=== PATIENT | male | born 1975 | race Caucasian/White ===

== ENCOUNTER 2019-09-15 19:25 | Emergency (ER) | payer OTHER ==
[~2019-09-15] VITALS: Ht 175.3 cm; Wt 90.7 kg
[~2019-09-15 19:25] MED LIST: ALLOPURINOL 30300 M2 PO; FLEXERIL PO; INDOMETHACIN 5050 M1 PO; NORCO 5-325 TA1 EACH PO; PERCOCET 7.5-31 EACH PO; Prevacid
[2019-09-15] MEDS ORDERED: NORCO 5-325 TA1 EAC1 PO (20:48)
[2019-09-15] MEDS ORDERED: FLEXERIL PO (20:48)
[2019-09-15] MEDS ORDERED: NAPROSYN500 MG PO (20:48)
[2019-09-15 21:08] VITALS: BP 136/91
== END 2019-09-15 21:09 | disposition home or self-care (01) ==
LOC: M.ERS 19:25
DX: M54.5 Low back pain (principal); M54.2 Cervicalgia; K21.9 Gastro-esophageal reflux disease without esophagitis; M10.9 Gout, unspecified; F43.10 Post-traumatic stress disorder, unspecified; V03.99XA Pedestrian with other conveyance injured in collision with car, pick-up truck or van, unspecified whether traffic or nontraffic accident, initial encounter; Y93.89 Activity, other specified; Y92.488 Other paved roadways as the place of occurrence of the external cause; Y99.8 Other external cause status